=== PATIENT | female | born 1985 | race Caucasian/White ===

== ENCOUNTER 2020-08-25 23:01 | Emergency (ER) | payer SELFPAY ==
[~2020-08-25] VITALS: Ht 154.9 cm; Wt 75.0 kg
[2020-08-25] MEDS ORDERED: HYDROCODONE/ACETAMINOPHEN 5/325MG TABLET PO ONE (23:45)
[2020-08-26] MEDS ORDERED: TETANUS, DIPHTHERIA, PERTUSSIS VAC/PF 0.5ML (>7YR OLD) IM ONE
[2020-08-26] MEDS ORDERED: BACITRACIN ZINC OINT UDPKT TOP ONE
[2020-08-26 00:09] LABS: CHLORIDE 105 mEq/L (98-107)
[2020-08-26 00:13] LABS: HCG SCREEN NEGATIVE
[2020-08-26 00:17] LABS: BASOPHILS % 0.2 % (0.0-2.0); EOSINOPHILS % 0.4 % (0.0-5.0); HEMATOCRIT. 36.1 % (36.0-48.0); HEMOGLOBIN. 11.8 g/dL (12.0-16.0); LYMPHOCYTES % 13.3 % (20.0-50.0); MEAN PLATELET VOLUME 7.6 fl (7.4-10.4); MONOCYTES % 5.2 % (2.0-8.0); NEUTROPHILS % 80.9 % (40.0-76.0); PLATELET 459 x1000/uL (130-400); RED BLOOD CELL COUNT 4.94 mill/uL (4.2-5.4); RED CELL DISTRIBUTION WIDTH 15.5 % (11.6-14.6)
[2020-08-26] MEDS ORDERED: ONDANSETRON HCL 4MG/2ML INJ IV STA (00:18)
[2020-08-26] MEDS ORDERED: MORPHINE SULFATE 4 MG/ML CPJ (NOT FOR IM USE) IV STA ×2 (00:18→02:16)
[2020-08-26] MEDS ORDERED: IOHEXOL-300 100 ML BOTTLE ONE (02:04)
[2020-08-26] MEDS ORDERED: SODIUM CHLORIDE 0.9% 1,000 ML IV ONE (02:30)
[2020-08-26 02:43] VITALS: BP 141/84
== END 2020-08-26 03:03 | disposition home or self-care (01) ==
LOC: ER 23:01
DX: S72.8X2A Other fracture of left femur, initial encounter for closed fracture (principal); S20.219A Contusion of unspecified front wall of thorax, initial encounter; S80.01XA Contusion of right knee, initial encounter; V43.62XA Car passenger injured in collision with other type car in traffic accident, initial encounter; Y93.89 Activity, other specified; Y92.488 Other paved roadways as the place of occurrence of the external cause
CPT/HCPCS: 36415; 71045; 71260; 73552; 73560; 73562; 73590; 74177; 80048; 84703; 85025; 90471; 90715; 93005; 96361; 96374; 96375; 96376; 99285; J2270; J2405; J7030; Q9967